=== PATIENT | female | born 1970 | race Two or more races ===

== ENCOUNTER 2017-01-04 00:04 | Emergency (ER) | payer SELFPAY ==
[~2017-01-04] VITALS: Ht 157.5 cm; Wt 58.1 kg
[2017-01-04 00:51] LABS: KETONES,URINE NEGATIVE (NEGATIVE); LEUKOCYTE ESTERASE ,URINE NEGATIVE (NEGATIVE)
[2017-01-04 00:53] LABS: PREGNANCY TEST URINE QUAL NEGATIVE (NEGATIVE)
[2017-01-04 00:57] LABS: ADD UA MICROSCOPIC YES
[2017-01-04] MEDS ORDERED: KETOROLAC TROMETHAMINE INJ 60 MG/2 ML VIAL IM ONE ×2 (01:00→01:13)
[2017-01-04] MEDS ORDERED: CARISOPRODOL 350 MG TABLET PO ONE (01:00)
[2017-01-04 01:05] LABS: ADD URINE CULTURE NO; WBC,URINE 0-2 /HPF (0-3)
[2017-01-04 01:06] LABS: MUCUS,URINE Rare /LPF (None Seen)
[2017-01-04] MEDS ORDERED: CARISOPRODOL 350 MG TABLET ONE (01:13)
[2017-01-04 02:07] VITALS: BP 113/65
== END 2017-01-04 02:08 | disposition home or self-care (01) ==
LOC: ER 00:08
DX: M62.830 Muscle spasm of back (principal); M54.42 Lumbago with sciatica, left side; R25.2 Cramp and spasm
CPT/HCPCS: 81001; 84703; 96372; 99284; A4606; J1885; Z7610; 81000-TC

== ENCOUNTER 2017-01-17 20:35 | Emergency (ER) | payer MEDICAID ==
[~2017-01-17] VITALS: Ht 154.9 cm; Wt 54.4 kg
[2017-01-17] MEDS ORDERED: SILVER SULFADIAZINE CREAM 25 GM TUBE ONE (21:10)
--- NOTE | 2017-01-17 21:24 | NUR ---
WOUND CARE COMPLETED WITH APPLICATION OF SILVADENE TO ABRASIONS
[2017-01-17] MEDS ORDERED: HYDROCODONE/APAP 10/325MG 1 EA TABLET ONE (21:29)
[2017-01-17] MEDS ORDERED: HYDROCODONE/APAP 10/325MG 1 EA TABLET PO ONE (21:30)
[2017-01-17] MEDS ORDERED: SILVER SULFADIAZINE CREAM 25 GM TUBE TP ONE (21:30)
[2017-01-17 21:42] VITALS: BP 117/69
== END 2017-01-17 21:44 | disposition home or self-care (01) ==
LOC: ER 20:37
DX: S40.811A Abrasion of right upper arm, initial encounter (principal); S80.811A Abrasion, right lower leg, initial encounter; L03.115 Cellulitis of right lower limb; V29.9XXA Motorcycle rider (driver) (passenger) injured in unspecified traffic accident, initial encounter; Y93.89 Activity, other specified; Y92.89 Other specified places as the place of occurrence of the external cause; Y99.9 Unspecified external cause status
CPT/HCPCS: 99283; A4606; Z7610

== ENCOUNTER 2021-04-13 17:39 | Emergency (ER) | payer MEDICAID ==
[~2021-04-13] VITALS: Ht 152.4 cm; Wt 62.6 kg
[2021-04-13 17:51] VITALS: BP 130/78
[2021-04-13] MEDS ORDERED: diphenhydrAMINE HCL 25 MG CAPSULE ONE (18:14)
[2021-04-13] MEDS ORDERED: IBUP-1955 PO (18:15)
[2021-04-13] MEDS ORDERED: DIPH25CA83 PO (18:15)
[2021-04-13] MEDS ORDERED: TRIA15CR2 TP (18:15)
[2021-04-13] MEDS ORDERED: TRAM50TA2 PO (18:15)
[2021-04-13] MEDS ORDERED: diphenhydrAMINE HCL 25 MG CAPSULE PO ONE (18:30)
--- NOTE | 2021-04-13 18:36 | NUR ---
Patient discharged to home in stable condition. Written and verbal after care instructions given. Patient verbalizes understanding of instruction.
== END 2021-04-13 18:36 | disposition home or self-care (01) ==
LOC: ER 17:45
DX: T88.1XXA Other complications following immunization, not elsewhere classified, initial encounter (principal); R51.9 Headache, unspecified; Z98.890 Other specified postprocedural states; Z90.89 Acquired absence of other organs; Z88.6 Allergy status to analgesic agent; Z88.8 Allergy status to other drugs, medicaments and biological substances
CPT/HCPCS: 99283; Q0163

== ENCOUNTER 2022-02-09 11:28 | Emergency (ER) | payer MEDICAID ==
[~2022-02-09] VITALS: Ht 154.9 cm; Wt 61.2 kg
[~2022-02-09 11:28] MED LIST: DIPH25CA83 PO; IBUP-1955 PO; TRAM50TA2 PO; TRIA15CR2 TP
--- NOTE | 2022-02-09 11:28 | NUR ---
PT BIB SELF C/O EPIGASTRIC PAIN STARTED YESTERDAY AROUND 4PM. PT IS AAOX4, NOT IN RESPIRATORY DISTRESS, V/S STABLE, KEPT RESTED AND COMFORTABLE. WILL CONTINUE TO MONITOR.
--- NOTE | 2022-02-09 11:39 | NUR ---
URINE SPECIMEN COLLECTED AND SENT TO LAB.
--- NOTE | 2022-02-09 11:42 | NUR ---
SEEN AND EXAMINED BY .
--- NOTE | 2022-02-09 11:52 | NUR ---
ER PHLEB AT BEDSIDE FOR BLOOD DRAW.
[2022-02-09 12:11] LABS: BASOPHILS % (AUTO) 0.2 % (0.0-2.0); EOSINOPHILS % (AUTO) 1.4 % (0.0-6.0); HEMATOCRIT 41 % (33-45); HEMOGLOBIN 13.6 g/dL (11.5-14.8); LYMPHOCYTES # (AUTO) 1.7 K/uL (0.8-4.8); LYMPHOCYTES % (AUTO) 31.6 % (20.0-44.0); MEAN CORPUSCULAR HGB CONC 34 g/dl (31.0-36.0); MEAN CORPUSCULAR VOLUME 96 fL (82-100); MONOCYTES # (AUTO) 0.2 K/uL (0.1-1.30); MONOCYTES % (AUTO) 4.5 % (2.0-12.0); NEUTROPHILS # (AUTO) 3.3 K/uL (1.8-8.9); NEUTROPHILS % (AUTO) 62.3 % (43.0-81.0); PLATELET COUNT (AUTO) 225 K/uL (150-450); RED BLOOD CELL COUNT(AUTO) 4.21 MIL/uL (4.0-5.2); WHITE BLOOD COUNT (AUTO) 5.3 K/uL (4.3-11.0)
[2022-02-09 12:17] LABS: BILIRUBIN,URINE NEGATIVE (NEGATIVE); COLOR,URINE YELLOW (YELLOW); LEUKOCYTE ESTERASE ,URINE NEGATIVE (NEGATIVE); NITRITE, URINE NEGATIVE (NEGATIVE); PROTEIN,URINE NEGATIVE (NEGATIVE); UGLUCOSE NEGATIVE (NEGATIVE); UROBILINOGEN,URINE 0.2 EU/dL (0.2)
[2022-02-09 12:21] LABS: ALBUMIN 3.5 g/dL (3.4-5.0); BILIRUBIN,DIRECT 0.1 mg/dL (0.0-0.2); BILIRUBIN,TOTAL 0.6 mg/dL (0.2-1.0); CALCIUM, SERUM 8.5 mg/dL (8.5-10.1); CREATININE 0.9 mg/dL (0.6-1.3); POTASSIUM 3.5 mmol/L (3.5-5.1); TOTAL PROTEIN, SERUM 7.8 g/dL (6.4-8.2)
[2022-02-09 12:29] LABS: BACTERIA,URINE Rare /HPF (None Seen); WBC,URINE 0-2 /HPF (0-3)
--- NOTE | 2022-02-09 13:02 | NUR ---
WIRE WEAVER AT BEDSIDE FOR ULTRASOUND.
[2022-02-09] MEDS ORDERED: OMEP40CA21 PO (13:09)
--- NOTE | 2022-02-09 13:25 | NUR ---
Note zafarmoni in ED - 02/09/22 at 1326 by NICHOLAS IV removed. Catheter intact and site benign. Pressure and 4x4 applied to site. No bleeding noted. Patient discharged to home in stable condition. Written and verbal after care instructions given. Patient verbalizes understanding of instruction.
[2022-02-09 13:26] VITALS: BP 120/64
--- NOTE | 2022-02-09 13:26 | NUR ---
Patient discharged to home in stable condition. Written and verbal after care instructions given. Patient verbalizes understanding of instruction.
== END 2022-02-09 13:26 | disposition home or self-care (01) ==
LOC: ER 11:34
DX: K29.00 Acute gastritis without bleeding (principal); R10.13 Epigastric pain; Z90.89 Acquired absence of other organs; Z90.49 Acquired absence of other specified parts of digestive tract; Z87.19 Personal history of other diseases of the digestive system; Z60.2 Problems related to living alone; Z79.1 Long term (current) use of non-steroidal anti-inflammatories (NSAID); Z79.899 Other long term (current) drug therapy
CPT/HCPCS: 36415; 76700-TC; 80048-TC; 80076-TC; 81001; 83690-TC; 85025-TC

== ENCOUNTER 2022-08-11 17:39 | Emergency (ER) | payer MEDICAID, OTHER ==
[~2022-08-11] VITALS: Ht 152.4 cm; Wt 70.8 kg
[~2022-08-11 17:39] MED LIST changes: +OMEP40CA21 PO
--- NOTE | 2022-08-11 17:50 | NUR ---
RECIVED PT 52 YRS FEMALE WALKING IN FROM home c/o pain in both lower extramity
--- NOTE | 2022-08-11 18:30 | NUR ---
SEEN BY DR. MACHADO
--- NOTE | 2022-08-11 18:55 | NUR ---
rose alonso done at bed yael
[2022-08-11] MEDS ORDERED: KETOROLAC TROMETHAMINE INJ 30 MG/ML VIAL IV ONE (19:00)
[2022-08-11] MEDS ORDERED: KETOROLAC TROMETHAMINE INJ 30 MG/ML VIAL ONE (19:00)
[2022-08-11] MEDS ORDERED: IV NS 0.9% 1,000 ML IV ONE (19:00)
--- NOTE | 2022-08-11 19:05 | NUR ---
INSERTED ANGO CATHETHER FR # 20 ON RT FOR ARM
[2022-08-11 19:32] LABS: ALBUMIN 3.9 g/dL (3.4-5.0); BILIRUBIN,TOTAL 0.3 mg/dL (0.2-1.0); CALCIUM, SERUM 9.1 mg/dL (8.5-10.1); CREATININE 0.9 mg/dL (0.6-1.3); TOTAL PROTEIN, SERUM 8.1 g/dL (6.4-8.2)
--- NOTE | 2022-08-11 19:34 | NUR ---
HAND OFF LISETTE BANKS
[2022-08-11 19:54] LABS: BASOPHILS # (AUTO) 0.1 K/uL (0.0-0.2); BASOPHILS % (AUTO) 0.8 % (0.0-2.0); EOSINOPHILS % (AUTO) 3.5 % (0.0-6.0); HEMATOCRIT 39 % (33-45); HEMOGLOBIN 13.2 g/dL (11.5-14.8); LYMPHOCYTES # (AUTO) 3.1 K/uL (0.8-4.8); LYMPHOCYTES % (AUTO) 44.3 % (20.0-44.0); MEAN CORPUSCULAR HGB CONC 34 g/dl (31.0-36.0); MEAN CORPUSCULAR VOLUME 95 fL (82-100); MONOCYTES # (AUTO) 0.6 K/uL (0.1-1.30); MONOCYTES % (AUTO) 8.4 % (2.0-12.0); PLATELET COUNT (AUTO) 290 K/uL (150-450)
--- NOTE | 2022-08-11 20:25 | NUR ---
Patient discharged to home in stable condition. Written and verbal after care instructions given. Patient verbalizes understanding of instruction. PT ambulatory with a steady gait
[2022-08-11 20:26] VITALS: BP 128/81
== END 2022-08-11 20:27 | disposition home or self-care (01) ==
LOC: ER 17:44
DX: R25.2 Cramp and spasm (principal); E03.9 Hypothyroidism, unspecified; Z90.89 Acquired absence of other organs; Z60.2 Problems related to living alone; Z79.899 Other long term (current) drug therapy
CPT/HCPCS: 99284; 93970; 96374; 96361; 85025; 36415; 80053; J1885; J7030

== ENCOUNTER 2024-01-25 21:48 | Emergency (ER) | payer OTHER ==
[~2024-01-25] VITALS: Ht 152.4 cm; Wt 68.0 kg
[2024-01-25] MEDS ORDERED: HYDROCODONE/APAP 5/325MG TABLET ONE (22:48)
[2024-01-25] MEDS ORDERED: ONDANSETRON 4 MG TAB.RAPDIS ONE (22:48)
[2024-01-25] MEDS: HYDROCODONE/APAP 5/325MG TABLET PO ONE (22:53)
[2024-01-25] MEDS: ONDANSETRON 4 MG TAB.RAPDIS SL ONE (22:53)
[2024-01-26 00:54] VITALS: BP 134/86; TEMP 98.1; O2SAT 100
== END 2024-01-26 00:54 | disposition home or self-care (01) ==
LOC: EDUNIT# 21:48 → ER 21:53
DX: S40.012A Contusion of left shoulder, initial encounter (principal); S60.221A Contusion of right hand, initial encounter; V43.52XA Car driver injured in collision with other type car in traffic accident, initial encounter; Y93.89 Activity, other specified; Y92.89 Other specified places as the place of occurrence of the external cause; Y99.8 Other external cause status
CPT/HCPCS: 99284; 70450; 73060; 73030; 72131; Q0162

== ENCOUNTER 2024-03-02 13:52 | Emergency (ER) | payer OTHER ==
[~2024-03-02] VITALS: Ht 152.4 cm; Wt 68.0 kg
[2024-03-02] MEDS ORDERED: diphenhydrAMINE HCL 50 MG/ML VIAL ONE (14:36)
[2024-03-02] MEDS ORDERED: ONDANSETRON HCL/PF 4 MG/2 ML VIAL ONE (14:37)
[2024-03-02] MEDS ORDERED: SUMATRIPTAN SUCCINATE 25 MG TABLET ONE (14:37)
[2024-03-02] MEDS ORDERED: PANTOPRAZOLE 40 MG VIAL ONE (14:37)
[2024-03-02] MEDS ORDERED: SUMATRIPTAN SUCCINATE 6 MG/0.5 ML VIAL SQ ONE (14:39)
[2024-03-02] MEDS: diphenhydrAMINE HCL 50 MG/ML VIAL IV ONE (14:48)
[2024-03-02] MEDS: ONDANSETRON HCL/PF 4 MG/2 ML VIAL IVP ONE (14:49)
[2024-03-02] MEDS: PANTOPRAZOLE 40 MG VIAL IV ONE (14:49)
[2024-03-02] MEDS: IV NS 0.9% 1,000 ML BAG IV ONE (14:49)
[2024-03-02] MEDS: SUMATRIPTAN SUCCINATE 6 MG/0.5 ML VIAL SQ ONE (14:49)
[2024-03-02 15:57] LABS: CALCIUM, SERUM 8.5 mg/dL (8.5-10.1); CREATININE 0.8 mg/dL (0.6-1.3); POTASSIUM 3.6 mmol/L (3.5-5.1)
[2024-03-02 16:02] LABS: ALBUMIN 3.1 g/dL (3.4-5.0); BILIRUBIN,DIRECT 0.1 mg/dL (0.0-0.2); BILIRUBIN,TOTAL 0.3 mg/dL (0.2-1.0)
[2024-03-02 16:17] LABS: TOTAL PROTEIN, SERUM 7.2 g/dL (6.4-8.2)
[2024-03-02 16:21] LABS: BASOPHILS # (AUTO) 0.1 K/uL (0.0-0.2); BASOPHILS % (AUTO) 0.9 % (0.0-2.0); EOSINOPHILS # (AUTO) 0.2 K/uL (0.0-0.7); EOSINOPHILS % (AUTO) 2.3 % (0.0-6.0); HEMATOCRIT 40 % (33-45); HEMOGLOBIN 13.6 g/dL (11.5-14.8); LYMPHOCYTES # (AUTO) 2.9 K/uL (0.8-4.8); LYMPHOCYTES % (AUTO) 32.9 % (20.0-44.0); MEAN CORPUSCULAR HEMOGLOBIN 33 PG (26.0-33.0); MEAN CORPUSCULAR HGB CONC 34 g/dl (31.0-36.0); MEAN CORPUSCULAR VOLUME 97 fL (82-100); MONOCYTES # (AUTO) 0.5 K/uL (0.1-1.30); MONOCYTES % (AUTO) 5.5 % (2.0-12.0); NEUTROPHILS # (AUTO) 5.1 K/uL (1.8-8.9); NEUTROPHILS % (AUTO) 58.4 % (43.0-81.0); PLATELET COUNT (AUTO) 299 K/uL (150-450); RED BLOOD CELL COUNT(AUTO) 4.07 MIL/uL (4.0-5.2); RED CELL DISTRIBUTION WIDTH 13.9 % (11.5-15.0); WHITE BLOOD COUNT (AUTO) 8.7 K/uL (4.3-11.0)
[2024-03-02] MEDS ORDERED: BUTA1CAP46 PO (16:50)
[2024-03-02 17:07] VITALS: BP 131/84; TEMP 98.4; O2SAT 98
== END 2024-03-02 17:07 | disposition home or self-care (01) ==
LOC: ER 13:54
DX: R51.9 Headache, unspecified (principal); R10.13 Epigastric pain; R11.0 Nausea; E03.9 Hypothyroidism, unspecified; Z60.2 Problems related to living alone; Z90.89 Acquired absence of other organs; Z79.899 Other long term (current) drug therapy
CPT/HCPCS: 99285; 96374; 70450; 96375; 96361; 85025; 80048; 80076; 36415; 96372; J1200; J3030; J2405; J7030; C9113

== ENCOUNTER 2024-08-09 11:08 | Emergency (ER) | payer OTHER ==
[~2024-08-09] VITALS: Ht 152.4 cm; Wt 66.7 kg
[~2024-08-09 11:08] MED LIST changes: +BUTA1CAP46 PO
[2024-08-09 11:26] VITALS: BP 134/69; TEMP 97.5
[2024-08-09] MEDS ORDERED: NAPR-1009 PO (11:48)
[2024-08-09] MEDS: NAPROXEN 250 MG TABLET PO ONE (12:00)
[2024-08-09] MEDS ORDERED: HYDROCODONE/APAP 5/325MG TABLET ONE (13:03)
[2024-08-09] MEDS ORDERED: NAPROXEN 250 MG TABLET ONE (13:03)
[2024-08-09] MEDS: HYDROCODONE/APAP 5/325MG TABLET PO ONE (13:06)
[2024-08-09 14:31] VITALS: O2SAT 99
[2024-08-09] MEDS ORDERED: TRAM50TA2 PO (14:36)
== END 2024-08-09 15:18 | disposition home or self-care (01) ==
LOC: ER 11:12
DX: M25.532 Pain in left wrist (principal); M79.639 Pain in unspecified forearm; M79.89 Other specified soft tissue disorders; E03.9 Hypothyroidism, unspecified; Z79.899 Other long term (current) drug therapy; Z60.2 Problems related to living alone
CPT/HCPCS: 73090-TC; 73110

== ENCOUNTER 2024-12-22 15:44 | Emergency (ER) | payer OTHER ==
[~2024-12-22] VITALS: Ht 152.4 cm; Wt 62.6 kg
[~2024-12-22 15:44] MED LIST changes: +NAPR-1009 PO
[2024-12-22 15:48] VITALS: BP 124/71; TEMP 98
[2024-12-22] MEDS ORDERED: DIPH28.34 TP (16:23)
[2024-12-22] MEDS ORDERED: TERB30CR8 TP (16:23)
[2024-12-22 16:35] VITALS: O2SAT 99
== END 2024-12-22 16:35 | disposition home or self-care (01) ==
LOC: ER 15:47
DX: B35.4 Tinea corporis (principal); R21 Rash and other nonspecific skin eruption; E03.9 Hypothyroidism, unspecified; Z79.899 Other long term (current) drug therapy; Z60.2 Problems related to living alone